=== PATIENT | male | born 1935 | race Caucasian/White ===

== ENCOUNTER 2016-09-27 04:13 | Emergency (ER) | payer MEDICARE, OTHER ==
[~2016-09-27] VITALS: Ht 167.6 cm; Wt 76.2 kg
[~2016-09-27 04:13] MED LIST: AMARYL1 MG PO; CEROVITE ADVANC1 TAB PO; COQ10-VIT E 201 EACH PO; CORDARONE200 MG PO; COREG25 MG PO; COUMADIN2.5 MG PO; DULCOLAX10 MG RECTAL; DULCOLAX5 MG PO; FERROUS SULFAT325 M1 PO; GLUCAGON HCL1 MG IM; HUMALOG100 UNIT/1 SUBCUT; LASIX40 MG PO; LUTEIN20 MG PO; MIRALAX17 GM PO; NEPHROCAPS QT1 EACH PO; OXYCODONE HCL10 MG PO; OXYCODONE HCL5 MG PO; SENOKOT-S TABL1 EACH PO; VITAMIN C500 M1 PO; VITAMIN D35000 UNIT PO; VITAMIN E400 UNI2 PO
[2016-09-27] MEDS ORDERED: MIDODRINE HCL5 MG PO (14:42)
== END 2016-09-27 06:14 | disposition short-term general hospital (02) ==
LOC: ER 04:13
PROC: 0T9B70Z Drainage of Bladder with Drainage Device, Via Natural or Artificial Opening (ICD-10-PCS; principal; 2016-09-27)
DX: R33.9 Retention of urine, unspecified (principal); N39.0 Urinary tract infection, site not specified; N19 Unspecified kidney failure; I50.9 Heart failure, unspecified; Z88.1 Allergy status to other antibiotic agents; Z99.2 Dependence on renal dialysis